=== PATIENT | male | born 1950 | race Caucasian/White ===

== ENCOUNTER 2023-07-05 11:35 | Emergency (ER) | payer SELFPAY ==
[~2023-07-05] VITALS: Ht 190.5 cm; Wt 96.2 kg
[2023-07-05 11:45] VITALS: BP 116/81
[2023-07-05] MEDS ORDERED: BACLOFEN5 M1 PO (11:51)
[2023-07-05] MEDS ORDERED: OXAYDO5 M1 PO (11:52)
[2023-07-05] MEDS ORDERED: GABA100 PO (11:52)
[2023-07-05] MEDS ORDERED: DOXY100 PO (11:53)
[2023-07-05 12:12] LABS: BASOPHILS ABSOLUTE AUTO 0.06 K/mm3 (0.00-0.23); BASOPHILS PERCENT AUTO 1 % (0-2); EOSINOPHILS ABSOLUTE AUTO 0.08 K/mm3 (0.00-0.68); EOSINOPHILS PERCENT AUTO 1 % (0-6); Hematocrit 37.8 % (37.0-53.0); Hemoglobin 12.1 g/dL (13.5-17.5); IMMATURE GRAN ABSOLUTE AUTO 0.02 K/mm3 (0.00-0.10); IMMATURE GRAN PERCENT AUTO 0 % (0-1); LYMPHOCYTES ABSOLUTE AUTO 1.19 K/mm3 (0.84-5.20); LYMPHOCYTES PERCENT AUTO 16 % (21-46); MONOCYTES ABSOLUTE AUTO 0.36 K/mm3 (0.16-1.47); MONOCYTES PERCENT AUTO 5 % (4-13); Mean Corpuscular HGB 34.8 pg (26.0-34.0); Mean Corpuscular Volume 109 fL (80-100); Mean Platelet Volume 9.2 fL (9.1-12.4); NEUTROPHILS ABSOLUTE AUTO 5.84 K/mm3 (1.96-9.15); NEUTROPHILS PERCENT AUTO 77 % (41-73); Platelet Count 249 K/mm3 (150-400); RDW Coefficient Variation 14.9 % (11.7-14.2); RDW Standard Deviation 59.2 fL (35.1-46.3); Red Blood Cell Count 3.48 M/mm3 (4.30-5.90); White Blood Cell Count 7.55 K/mm3 (4.00-11.30)
[2023-07-05 12:39] LABS: Albumin, Blood 2.9 g/dL (3.4-5.0); Albumin/Globulin Ratio 0.5 (0.8-1.8); Bilirubin, Total 0.4 mg/dL (0.1-1.0); Calcium, Blood 8.7 mg/dL (8.5-10.1); Creatinine, Blood 0.8 mg/dL (0.60-1.20); Globulin, Blood 6.2 g/dL (2.2-4.0); Potassium, Blood 4.4 mmol/L (3.5-5.5); Total Protein, Blood 9.1 g/dL (6.4-8.2)
[2023-07-20] MEDS ORDERED: CLOP75 PO (17:12)
[2023-07-20] MEDS ORDERED: IBUP200 PO (17:12)
[2023-07-20] MEDS ORDERED: Acetaminophen325 M1 PO (17:12)
[2023-07-20] MEDS ORDERED: Crestor40 MG PO (17:13)
== END 2023-07-05 13:43 | disposition home or self-care (01) ==
LOC: ER 11:35
PROVIDERS: Emergency Medicine
DX: I96 Gangrene, not elsewhere classified (principal); I99.8 Other disorder of circulatory system; Z79.891 Long term (current) use of opiate analgesic; Z79.899 Other long term (current) drug therapy
CPT/HCPCS: 80053; 85025; 99283

== ENCOUNTER 2023-07-21 09:15 | Day surgery (SDC) | payer OTHER ==
[~2023-07-21] VITALS: Ht 190.5 cm; Wt 89.0 kg
[2023-07-21] VITALS (8 sets, daily range): BP systolic 129–159; BP diastolic 99–141
[~2023-07-21 09:15] MED LIST: Acetaminophen325 M1 PO; BACLOFEN5 M1 PO; CLOP75 PO; Crestor40 MG PO; DOXY100 PO; GABA100 PO; IBUP200 PO; OXAYDO5 M1 PO
--- NOTE | 2023-07-21 14:22 | NUR ---
PT BACK TO RECOVERY ROOM AFTER PROCEDURE. SLEEPING, BUT ROUSES EASILY TO VERBAL STIMULI. VSS, CALL LIGHT IN REACH. LEFT GROIN SITE SOFT AND NON-TENDER, TEGADERM CHG DRESSING OVER SITE.
--- NOTE | 2023-07-21 14:45 | NUR ---
PT EATING LUNCH, DENIES PAIN OR DISCOMFORT. VSS, CALL LIGHT IN REACH.
--- NOTE | 2023-07-21 15:45 | NUR ---
DR BOND AT BEDSIDE SPEAKING WITH PT AND FAMILY ABOUT PROCEDURE RESULTS AND PLAN FOR ADDITIONAL PROCEDURE ON OTHER LEG.
--- NOTE | 2023-07-21 16:30 | NUR ---
IV DC'D, CATH INTACT. LEFT GROIN SITE REMAINS SOFT AND NON-TENDER. NO BLEEDING OR SWELLING NOTED AT SITE. PT ASSISTED TO GET DRESSED AND INTO WHEELCHAIR. OUT TO CAR VIA MOTORIZED WHEELCHAIR, ACCOMPANIED BY MULTIPLE FAMILY MEMBERS.
== END 2023-07-21 22:41 | disposition home or self-care (01) ==
LOC: MHTC 09:15
DX: I70.233 Atherosclerosis of native arteries of right leg with ulceration of ankle (principal); I70.221 Atherosclerosis of native arteries of extremities with rest pain, right leg; I96 Gangrene, not elsewhere classified; I87.2 Venous insufficiency (chronic) (peripheral); L97.312 Non-pressure chronic ulcer of right ankle with fat layer exposed; I48.91 Unspecified atrial fibrillation; L97.519 Non-pressure chronic ulcer of other part of right foot with unspecified severity; Z87.891 Personal history of nicotine dependence; L97.819 Non-pressure chronic ulcer of other part of right lower leg with unspecified severity; I70.235 Atherosclerosis of native arteries of right leg with ulceration of other part of foot
CPT/HCPCS: 37227; 37228; 37232; 75625; 75716; 75774; 76937; 85347; 99152; 99153; C1714; C1725; C1760; C1769; C1874; C1887; C1894; C2623; J1644; J2250; J3010; J7030; J7050; Q9967

== ENCOUNTER 2023-07-30 08:40 | Observation (INO) | payer OTHER ==
[~2023-07-30] VITALS: Ht 190.5 cm; Wt 94.1 kg
[2023-07-30] VITALS (13 sets, daily range): BP systolic 99–146; BP diastolic 71–110
--- NOTE | 2023-07-30 12:24 | NUR ---
PT TO RECOVERY FROM LAB. PT RESTING IN BED W/ EYES CLOSED. R AND L SITE SOFT AND NON-TENDER. NO SIGNS OF BLEEDING. PT LYING FLAT.
--- NOTE | 2023-07-30 12:29 | NUR ---
PT ATTEMPTED TO USE URINAL W/O SUCCESS.
--- NOTE | 2023-07-30 12:45 | NUR ---
WOUND CARE NURSE AT BEDSIDE TO EVALUATE RIGHT FOOT WOUNDS.
[2023-07-30 13:52] LABS: BASOPHILS ABSOLUTE AUTO 0.04 K/mm3 (0.00-0.23); BASOPHILS PERCENT AUTO 1 % (0-2); EOSINOPHILS ABSOLUTE AUTO 0.07 K/mm3 (0.00-0.68); EOSINOPHILS PERCENT AUTO 1 % (0-6); Hematocrit 34.2 % (37.0-53.0); IMMATURE GRAN ABSOLUTE AUTO 0.03 K/mm3 (0.00-0.10); IMMATURE GRAN PERCENT AUTO 0 % (0-1); LYMPHOCYTES ABSOLUTE AUTO 1.01 K/mm3 (0.84-5.20); LYMPHOCYTES PERCENT AUTO 15 % (21-46); MONOCYTES ABSOLUTE AUTO 0.41 K/mm3 (0.16-1.47); MONOCYTES PERCENT AUTO 6 % (4-13); Mean Corpuscular HGB 34.5 pg (26.0-34.0); Mean Corpuscular HGB Conc 32.2 g/dL (31.5-36.5); Mean Corpuscular Volume 107 fL (80-100); NEUTROPHILS ABSOLUTE AUTO 5.14 K/mm3 (1.96-9.15); NEUTROPHILS PERCENT AUTO 77 % (41-73); Platelet Count 319 K/mm3 (150-400); RDW Standard Deviation 59.7 fL (35.1-46.3); Red Blood Cell Count 3.19 M/mm3 (4.30-5.90)
--- NOTE | 2023-07-30 13:52 | NUR ---
DR BOND AT BEDSIDE SPEAKING WITH PT AND ABOUT PLAN FOR ADMIT AND ORTHOPEDIC SURGEON CONSULT.
--- NOTE | 2023-07-30 14:05 | NUR ---
PT SITTING UP AT 30 DEGREES. BILAT GROIN SITES SOFT AND NON-TENDER PER PT. NO BLEEDING NOTED.
[2023-07-30 14:16] LABS: Albumin, Blood 2.7 g/dL (3.4-5.0); Albumin/Globulin Ratio 0.4 (0.8-1.8); Bilirubin, Total 0.4 mg/dL (0.1-1.0); Bun/Creatinine Ratio 21.4 (12.0-20.0); Calcium, Blood 8.5 mg/dL (8.5-10.1); Creatinine, Blood 0.52 mg/dL (0.60-1.20); Globulin, Blood 6.6 g/dL (2.2-4.0); Total Protein, Blood 9.3 g/dL (6.4-8.2)
[2023-07-30 15:07] LABS: International Normalized Ratio 1.01; Prothrombin Time Results 10.6 Sec (9.7-11.5)
[2023-07-30] MEDS ORDERED: ELIQUIS2.5 MG PO (16:45)
--- NOTE | 2023-07-30 18:55 | NUR ---
arrival to pcu/shift summary patient arrived to pcu at 1550. patient is alert and oriented to place, person, and self. patient is forgetful, and per patient medications muddle him and more forgetful. patient has been pulling at lines and pulled out his right wrist iv. patient is redirectable. patient admit is complete. this rn called lovely to complete it. she is his poa and her number is in the chart. patient is a dnr with dnr band on right wrist. patient has multiple wounds to lower right extremity-toes, heel, top of foot, and right outer calf. pictures are in the chart. patient has bilateral groin access sites that are fully recovered. soft nontender no brusining. see admit shift assessment for further detials. plan is to be npo at midnight for surgery tomorrow. plan of care is up to date. bed alarm on and call light within reach
[2023-07-31 00:23] LABS: BASOPHILS ABSOLUTE AUTO 0.01 K/mm3 (0.00-0.23); BASOPHILS PERCENT AUTO 0 % (0-2); EOSINOPHILS ABSOLUTE AUTO 0.02 K/mm3 (0.00-0.68); EOSINOPHILS PERCENT AUTO 0 % (0-6); Hematocrit 29.4 % (37.0-53.0); Hemoglobin 9.6 g/dL (13.5-17.5); IMMATURE GRAN ABSOLUTE AUTO 0.02 K/mm3 (0.00-0.10); IMMATURE GRAN PERCENT AUTO 0 % (0-1); LYMPHOCYTES PERCENT AUTO 12 % (21-46); MONOCYTES ABSOLUTE AUTO 0.47 K/mm3 (0.16-1.47); MONOCYTES PERCENT AUTO 7 % (4-13); Mean Corpuscular HGB 34.2 pg (26.0-34.0); Mean Corpuscular HGB Conc 32.7 g/dL (31.5-36.5); Mean Corpuscular Volume 105 fL (80-100); Mean Platelet Volume 8.8 fL (9.1-12.4); NEUTROPHILS ABSOLUTE AUTO 5.16 K/mm3 (1.96-9.15); NEUTROPHILS PERCENT AUTO 80 % (41-73); Platelet Count 268 K/mm3 (150-400); RDW Coefficient Variation 15.1 % (11.7-14.2); RDW Standard Deviation 58.4 fL (35.1-46.3); Red Blood Cell Count 2.81 M/mm3 (4.30-5.90); White Blood Cell Count 6.48 K/mm3 (4.00-11.30)
[2023-07-31 00:40] LABS: Bun/Creatinine Ratio 23.4 (12.0-20.0); Calcium, Blood 8.3 mg/dL (8.5-10.1); Creatinine, Blood 0.56 mg/dL (0.60-1.20)
[2023-07-31 04:30] VITALS: BP 129/92
--- NOTE | 2023-07-31 06:19 | NUR ---
SHIFT SUMMARY ASSUMED CARE OF PT AT 1900. PT IS A/OX1-2. PT STEMPTED MULTIPLE TIMES TO GET OUT OF BED BEUCASE HE WANTED TO GO FISHING. PT UNABLE TO BE REDIRECTED, HOSPITALIST NOTIFIED AND PT PLACED IN RESTRAINTS, PO MEDICATIONS GIVEN. PT ABLE TO SLEEP BUT WHEN AWOKE AT 0300 PT WANTED TO LEAVE BECAUSE HE WAS UPSET THAT HE COULDNT HAVE ANY WATER DUE TO POSSIBLE SURGERY. PT EDUCATED MULTIPLE TIMES AND REDIRECTED BUT PT STILL ATTEMPTED TO GET OUT OF BED AND WOULD HIT THE CALL BUTTON ON THE BEDSIDE TO GET STAFF ATTENTION. NOTIFEID AND SAID THAT SHE HAS BEEN STRUGGLE WITH PT FOR THE LAST MONTH FOR SIMILAR SITUATIONS AT HOME. HR ELEVATED INTO THE 110-120, HOSPITALIST MADE AWARE AND ORDERED PER CHART. PT NPO SINCE MIDNIGHT.
[2023-07-31 07:51] VITALS: BP 124/99
--- NOTE | 2023-07-31 08:50 | NUR ---
CARE ASSUMPTION this rn assumed care at 0700. vital signs stable. made surgical status with tele. heparin stopped at 0800 for patient procedure that will be at 1400. patient is alert and oriented to person, self, and place. patient is forgetful and will repeat the same questions. patient does not use the call light approriately will forget which button does what and push the wrong one. this rn provided education. patient reports no chest pain/pressure or shortness of breath. patient reports pain in right foot and rated at 7, on a scale of 0-10 with 10 being the worst pain. patient did received pain medication per emar. see shift assessment for further detials. md hernandez in room and discussed plan of care with patient. md hernandez increased pain medication to match patients home meds. plan of care is up to date at this time.
--- NOTE | 2023-07-31 09:24 | NUR ---
Nani is at the bedside; She is upset because she understands that the pt is scheduled for surgery today, but the pt has dementia and she is the POA, and she has neither spoken to the surgeon nor been informed of the risks/benfits of the surgery. Call to day surgery to rectify the situation. alfa GARCIA came and spoke at bedside with pt and .
--- NOTE | 2023-07-31 13:59 | NUR ---
update md dubon in to see patient this afternoon. discussed palliative reasons for removing the right leg and explored both removal for bka or not. patient , jerome, who is poa, asked for more time to figure it out and patient taken off to have bka down. jerome and her daughter spoke to gertrude rn from palliative care. after both conversations and leaving to speak with other family it is decided that they want to move forward with hospice. gertrude informed, jorge a with care management informed, and md hernandez informed. [place].
[2023-07-31 15:03] VITALS: BP 123/85
--- NOTE | 2023-07-31 17:32 | NUR ---
SHIFT SUMMARY see previous notes. patient stating thinking we are on a [place] ship earlier today. patient calling out for "help" and when in room stating needing to fix the gas leak on the ship. this rn into to room and informed patient that there is no gas leak and he can just relax. patient stating tele box is the ignition. patient pulling at condom cath and rn educated patient on purose. busy vest given to patient but patient not using it. patient trying to get out of bed. md hernandez called due to increase agitation, and haldol ordered. patient received medication per emar. patient to be discharged tomorrow on hospice. jorge a from care managerment arrange a ride home. plan of care is up to date
--- NOTE | 2023-07-31 18:10 | NUR ---
Called to meet with family. They are having second thought second thoughts about the surgery. Extensive conversation about prognosis. they frear he will not come off of ventilator and will suffer in his recovery. After meeting with surgeon they decided to go home. Faciltaed symptom managment and advised career advisor on plan of care pt DC home with support.
[2023-07-31 20:12] VITALS: BP 121/75
[2023-08-01 00:20] VITALS: BP 126/82
--- NOTE | 2023-08-01 05:15 | NUR ---
SHIFT SUMMARY: ORIENTED TO SELF ONLY. DIFFICULT TO REDIRECT, ARGUING WITH STAFF WHEN REDIRECTING. WHEN ABLE TO REDIRECT PT IS VERY FORGETFUL, ASKING SAME QUESTIONS WITHIN 1-2 MINUTES. PT ATTEMPTING TO GET OUT OF BED WITHOUT ASSISTANCE, WOUND ON PT RIGHT FOOT BLEEDING DUE TO ATTMEPTING TO STAND ON FOOT. PT RETURNED TO BED. PLACED IN POSY VEST FOR PT SAFETY, UNABLE TO REORIENT. RIGHT FOOT CLEANED WITH WOUND CLEANSER, RINSED WITH NS, CALCIUM ALGINATE REPLACED OVER WOUND, WRAPPED WITH KIRLEX TO STOP BLEEDING. PT HR A-FIB UP TO 130'S WHEN AGGITATED AND ATTEMPTING TO STAND, RESTING IN LOW 100'S. BP STABLE. O2 SATS > 90% ON RA. AFEBRILE. INSUFFICENT PAIN CONTROL OBTAINED WITH PO PRN PAIN MEDS, ADDITIONAL PAIN MEDS ORDERED PER DR. BOONE. PT ABLE TO REST WITH EYES CLOSED FOR SEVERAL HOURS AFTER THIS. WILL CONTIUE TO MONITOR. CALL LIGHT IN REACH. BED IN LOW POSITION.
[2023-08-01 06:25] VITALS: BP 118/85
[2023-08-01 07:43] VITALS: BP 132/85
--- NOTE | 2023-08-01 08:56 | NUR ---
AM NOTE: PATIENT ALERT TO SELF. CALLING OUT THIS AM FOR . CONFUSED ON WHERE HE IS AND SITUATION. NONSENSICAL STATEMENTS AT TIMES. PERRLA, WEARING GLASSES. MOVING ALL EXTREMITIES IND. LANI VEST IN PLACE PATIENT IS TRYING TO GET OUT OF BED UNSAFELY. WOUNDS TO RIGHT TOES, HEEL, TOP OF FOOT AND RIGHT LATERAL LOWER EXTREMITY. DRESSING IN PLACE, ELEVATED ON PILLOWS. TELE SHOWING AFIB WITH HR 90-130'S DEPENDING ON ACTIVITY. BP STABLE. DENIES CHEST PAIN/PRESSURE/PALPITATIONS. NO EDEMA NOTED. PPP. ON ROOM AIR SATING ABOVE 95%. LUNGS SOUNDING CLEAR AND DIM IN BASES. DENIES SOB/COUGH. EVEN AND UNLABORED RESPIRTATIONS. BOWEL TONES PRESENT. PATIENT EATING WNL. TAKING PILLS WHOLE WITH WATER. NO SWALLOWING ISSUES NOTED. CONDOM CATH IN PLACE DUE TO INCONTINENCE. ATTENDS IN PLACE. PATIENT COMPLAINS OF HIS BOTTOM HURTING THIS MORNING. NO REDNESS NOTED OR WOUNDS TO BOTTOM AREA. REPOSITIONED WITH PILLOWS AND BOOSTED IN BED. PATIENT MORE COMFORTABLE, WATCHING TV AT THIS TIME. DENIES NEEDS.
[2023-08-01] MEDS ORDERED: DOCU100 PO (10:03)
[2023-08-01] MEDS ORDERED: METO25ER PO (10:03)
[2023-08-01] MEDS ORDERED: Percocet 10-321 EACH PO (10:04)
[2023-08-01] MEDS ORDERED: SENN187 PO (10:04)
--- NOTE | 2023-08-01 11:46 | NUR ---
DISCHARGE: NO ACUTE CHANGES. MEDICATED PER EMAR FOR PATIENT PAIN. FAMILY PRESENT AT BEDSIDE FOR DISCHAGE. IV REMOVED WNL. DISCHARGE INSTRUCTIONS REVIEWED WITH PATIENT, AND DAUGHTER. PLAN FOR HOME WITH HOSPICE. PATIENT LEFT UNIT WITH ALL PERSONAL BELONGINGS INCLUDING TEETH, WHEELCHAIR AND DISCHARGE PACKET. THIS RN REVIEWED NEW MEDICATIONS AND SENT HOME HARD SCRIPT WITH PATIENT/.
--- NOTE | 2023-08-02 16:09 | NUR ---
CALLED FAMILY FOR FOLLOW UP THEY NEEDED ASSISTANCE WITH WOUND CARE ADVISED THEM HOSPICE WILL TALKE OVER WOUND CARE.
== END 2023-08-01 11:15 | disposition hospice, home (50) ==
LOC: MHTC 08:40 → PCU 08:40 → SURS 08:41 → MHTC 09:00 → PCU 15:50 → MHTC 07-31 15:29 → PCU 07-31 15:30 → MHTC 07-31 21:56 → PCU 07-31 22:30 → SURS 08-01 11:15 → PCU 08-01 11:15
PROVIDERS: Internal Medicine; Physician Assistant; ADMIT Physician Assistant
DX: I70.223 Atherosclerosis of native arteries of extremities with rest pain, bilateral legs (principal); I96 Gangrene, not elsewhere classified; L97.312 Non-pressure chronic ulcer of right ankle with fat layer exposed; L97.519 Non-pressure chronic ulcer of other part of right foot with unspecified severity; I87.2 Venous insufficiency (chronic) (peripheral); I48.91 Unspecified atrial fibrillation; Z87.891 Personal history of nicotine dependence; Z79.899 Other long term (current) drug therapy
CPT/HCPCS: 36200; 36415; 37213; 37227; 37229; 37233; 73590; 73630; 75716; 76937; 80048; 80053; 83605; 85025; 85347; 85520; 85610; 85730; 87040; 96365; 96366; 96375; 96376; 99152; 99153; A9270; C1714; C1725; C1760; C1769; C1874; C1887; C1894; C2623; G0378; J1630; J1644; J2250; J2997; J3010; J7030; Q9967